=== PATIENT | female | born 1990 | race African-American/Black ===

== ENCOUNTER 2016-03-27 16:35 | Emergency (ER) | payer OTHER ==
[~2016-03-27] VITALS: Ht 170.2 cm; Wt 115.0 kg
[~2016-03-27 16:35] MED LIST: HYDR-3533 PO; MELO15TA2 PO; OMEP20TA39 PO; PREG75 PO; TRIX0.07 TOP; VALT1TAB26 PO; ZOFR4TAB3 SL
[2016-03-27 16:37] VITALS: BP 134/87; PULSE 94; RESP 20; TEMP 98; O2SAT 98
--- NOTE | 2016-03-27 17:15 | RADRPT ---
EXAM DATE/TIME: 03/27/2016 16:52 [facility] COMPARISON: No previous studies available for comparison. INDICATIONS : Chest pain MEDICAL HISTORY : None. SURGICAL HISTORY : None. ENCOUNTER: Initial ACUITY: 1 day PAIN SCORE: 10/10 LOCATION: Bilateral chest FINDINGS: A single view of the chest demonstrates the lungs to be symmetrically aerated without evidence of mas s, infiltrate or effusion. The cardiomediastinal contours are unremarkable. Osseous structures are intact. CONCLUSION: No acute disease. Rasta Sagastume MD FACR on March 27, 2016 at 17:13 Board Certified Radiologist. This report was verified electronically.
[2016-03-27 17:41] LABS: AUTOMATED NEUTROPHIL # 8.1 TH/MM3 (1.8-7.7); BASOPHIL # 0.1 TH/MM3 (0-0.2); BASOPHIL % 0.9 % (0.0-2.0); EOSINOPHIL % 0.4 % (0.0-4.0); HEMATOCRIT 35.4 % (35.0-46.0); HEMO FLAGS DIFF FINAL; LYMPH % 13.7 % (9.0-44.0); LYMPHOCYTE # 1.4 TH/MM3 (1.0-4.8); MEAN CORPUSCULAR HEMOGLOBIN 27.3 PG (27.0-34.0); MEAN CORPUSCULAR HGB CONC 32.5 % (32.0-36.0); MONO % 6.4 % (0.0-8.0); NEUT % 78.6 % (16.0-70.0); PLATELET COUNT 246 TH/MM3 (150-450); RED BLOOD COUNT 4.22 MIL/MM3 (4.00-5.30); RED CELL DISTRIBUTION WIDTH 13.8 % (11.6-17.2); WHITE BLOOD COUNT 10.3 TH/MM3 (4.0-11.0)
[2016-03-27] MEDS ORDERED: SODIUM CHLOR 0.9% 1000 ML INJ 1,000 ML IV ONE ×2 (17:48→20:15)
[2016-03-27] MEDS ORDERED: KETOROLAC TROMETHAMINE 30 MG/ML (IVP) VIAL IVP ONE (18:00)
[2016-03-27] MEDS ORDERED: diphenhydrAMINE HCL 50 MG/ML VIAL IVP ONE (18:00)
[2016-03-27] MEDS ORDERED: MORPHINE SULFATE 4 MG/ML INJ IV PUSH ONE (18:00)
[2016-03-27] MEDS ORDERED: SODIUM CHLORIDE 0.9% FLUSH 5 ML FLUSH IVF PRN (18:00)
[2016-03-27] MEDS ORDERED: PROCHLORPERAZINE INJ 10 MG/2 ML VIAL IVP ONE (18:00)
--- NOTE | 2016-03-27 18:03 | PD ---
HPI Chief Complaint: Chest Pain Time Seen by Provider: 17:38 Travel History International Travel<30 days: No Contact w/Intl Traveler<30days: No Traveled to known affect area: No History of Present Illness HPI The patient is a 25-year-old after [place] female who presents emergency department for chest pain and headache. Patient has a history of migraines, had a previous MRI which revealed a pineal cyst which is stable per the patient' s report. The headache is located over the frontal aspect, throbbing, associated with photophobia. The patient denies any nausea, vomiting, or fever. The patient also complains of substernal chest pain which she describes as intermittent, lasting approximately 1 minute, dull achy, and alleviated with deep inspiration. The patient denies any shortness of breath, diaphoresis, or known history of hypertension, hyperlipidemia, diabetes, or tobacco use. 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) ?: Not : 0 Past Surgical History Hysterectomy: No Oral Surgery: Yes (ONE WISDOM TOOTH PULLED ) Social History Alcohol Use: No Tobacco Use: No Substance Use: No Allergies-Medications (Allergen,Severity, Reaction): Coded Allergies: Clindamycin (Verified Allergy, Intermediate, Fever, Nausea, 03/27/16) Reported Meds & Prescriptions Reported Meds & Active Scripts Active No Active Prescriptions or Reported Medications Review of Systems Except as stated in HPI: all other systems reviewed are Neg Eyes: Positive: Photophobia HENT: Positive: Headaches, No: Neck Pain Cardiovascular: Positive: Chest Pain or Discomfort Respiratory: No: Shortness of Breath, Pleuritic Pain Gastrointestinal: No: Nausea, Vomiting, Abdominal Pain Musculoskeletal: No: Myalgias Neurologic: No: Dizziness Physical Exam Narrative GENERAL: Awake, alert, pleasant 25-year-old female who appears her stated age is in no acute respiratory distress. SKIN: Warm and dry. HEAD: Atraumatic. Normocephalic. EYES: Pupils equal and round. Mild lid lag on the left. Pupils equal round reactive to light. EOMs are intact. She is able to see fingers at a distance of 2 feet without difficulty. ENT: No nasal bleeding or discharge. Mucous membranes pink and moist. NECK: Trachea midline. No JVD. CARDIOVASCULAR: Regular rate and rhythm. No murmur appreciated. Palpation of the anterior chest wall does not reproduce pain. RESPIRATORY: No accessory muscle use. Clear to auscultation. Breath sounds equal bilaterally. GASTROINTESTINAL: Abdomen soft, non-tender, nondistended. No rebound tenderness. MUSCULOSKELETAL: No obvious deformities. No clubbing. No cyanosis. No edema. NEUROLOGICAL: Awake and alert. No obvious cranial nerve deficits. Motor grossly within normal limits. Normal speech. Nonfocal. PSYCHIATRIC: Appropriate mood and affect; insight and judgment normal. Data Data Last Documented VS Vital Signs Date Time Temp Pulse Resp B/P Pulse Ox O2 Delivery O2 Flow Rate FiO2 03/27/16 19:28 68 20 112/66 100 Room Air 03/27/16 16:37 98.0 Orders Electrocardiogram (03/27/16 16:43) Complete Blood Count With Diff (03/27/16 16:43) Basic Metabolic Panel (Bmp) (03/27/16 16:43) Ckmb (Isoenzyme) Profile (03/27/16 16:43) Troponin I (03/27/16 16:43) Chest, Single Ap (03/27/16 16:43) Ecg Monitoring (03/27/16 17:48) Iv Access Insert/Monitor (03/27/16 17:48) Oximetry (03/27/16 17:48) Sodium Chloride 0.9% Flush (Ns Flush) (03/27/16 18:00) Ketorolac Inj (Toradol Inj) (03/27/16 18:00) Prochlorperazine Inj (Compazine Inj) (03/27/16 18:00) Diphenhydramine Inj (Benadryl Inj) (03/27/16 18:00) Sodium Chlor 0.9% 1000 Ml Inj (Ns 1000 M (03/27/16 17:48) Morphine Inj (Morphine Inj) (03/27/16 18:00) Labs Laboratory Tests Test 03/27/16 17:20 White Blood Count 10.3 TH/MM3 Red Blood Count 4.22 MIL/MM3 Hemoglobin 11.5 GM/DL Hematocrit 35.4 % Mean Corpuscular Volume 84.0 FL Mean Corpuscular Hemoglobin 27.3 PG Mean Corpuscular Hemoglobin 32.5 % Concent Red Cell Distribution Width 13.8 % Platelet Count 246 TH/MM3 Mean Platelet Volume 9.9 FL Neutrophils (%) (Auto) 78.6 % Lymphocytes (%) (Auto) 13.7 % Monocytes (%) (Auto) 6.4 % Eosinophils (%) (Auto) 0.4 % Basophils (%) (Auto) 0.9 % Neutrophils # (Auto) 8.1 TH/MM3 Lymphocytes # (Auto) 1.4 TH/MM3 Monocytes # (Auto) 0.7 TH/MM3 Eosinophils # (Auto) 0.0 TH/MM3 Basophils # (Auto) 0.1 TH/MM3 CBC Comment DIFF FINAL Differential Comment Sodium Level 141 MEQ/L Potassium Level 3.8 MEQ/L Chloride Level 108 MEQ/L Carbon Dioxide Level 26.8 MEQ/L Anion Gap 6 MEQ/L Blood Urea Nitrogen 7 MG/DL Creatinine 0.64 MG/DL Estimat Glomerular Filtration 135 ML/MIN Rate Random Glucose 78 MG/DL Calcium Level 8.8 MG/DL Total Creatine Kinase 88 U/L Troponin I LESS THAN 0.02 NG/ML MDM Medical Decision Making Medical Screen Exam Complete: Yes Emergency Medical Condition: Yes Medical Record Reviewed: Yes Interpretation(s) EKG reveals sinus rhythm with a rate of 83. Q wave in lead 3. Last Impressions Chest X-Ray 03/27/16 1643 Signed Impressions: Service Date/Time: March 16:52 - CONCLUSION: No acute disease. Rasta Sagastume MD FACR Laboratory Tests Test 03/27/16 17:20 White Blood Count 10.3 TH/MM3 Red Blood Count 4.22 MIL/MM3 Hemoglobin 11.5 GM/DL Hematocrit 35.4 % Mean Corpuscular Volume 84.0 FL Mean Corpuscular Hemoglobin 27.3 PG Mean Corpuscular Hemoglobin 32.5 % Concent Red Cell Distribution Width 13.8 % Platelet Count 246 TH/MM3 Mean Platelet Volume 9.9 FL Neutrophils (%) (Auto) 78.6 % Lymphocytes (%) (Auto) 13.7 % Monocytes (%) (Auto) 6.4 % Eosinophils (%) (Auto) 0.4 % Basophils (%) (Auto) 0.9 % Neutrophils # (Auto) 8.1 TH/MM3 Lymphocytes # (Auto) 1.4 TH/MM3 Monocytes # (Auto) 0.7 TH/MM3 Eosinophils # (Auto) 0.0 TH/MM3 Basophils # (Auto) 0.1 TH/MM3 CBC Comment DIFF FINAL Differential Comment Sodium Level 141 MEQ/L Potassium Level 3.8 MEQ/L Chloride Level 108 MEQ/L Carbon Dioxide Level 26.8 MEQ/L Anion Gap 6 MEQ/L Blood Urea Nitrogen 7 MG/DL Creatinine 0.64 MG/DL Estimat Glomerular Filtration 135 ML/MIN Rate Random Glucose 78 MG/DL Calcium Level 8.8 MG/DL Total Creatine Kinase 88 U/L Troponin I LESS THAN 0.02 NG/ML Differential Diagnosis Differential diagnosis includes migraine, tension headache, intracranial hemorrhage, acute coronary syndrome, pericarditis, arthritis, GERD, esophageal spasm, pneumothorax, pneumonia, pulmonary embolism. Narrative Course IV was established, labs are drawn and sent, and the patient was placed on cardiac telemetry monitoring and continuous pulse oximetry monitoring. EKG was ordered and interpreted. Chest x-ray was ordered. The patient was administered morphine, Compazine, Benadryl, Toradol, and IV fluids. Chest x- rays unremarkable. Troponin is negative. EKG was unremarkable. Patient's laboratory evaluation was unremarkable, the patient was reevaluated at 8 PM, her headache had improved, however, she still had mild headache. Therefore, the patient was administered another liter of IV fluids and Fioricet. Patient be discharged and is advised to follow-up with her primary physician. Diagnosis Primary Impression: Cephalgia Qualified Code: R51 - Nonintractable headache, unspecified chronicity pattern , unspecified headache type Additional Impression: Atypical chest pain Patient Instructions: General Instructions Additional Instructions: Medications as directed. Follow-up with your primary physician. Return if symptoms worsen or progress. Med/Other Pt SpecificInfo: Prescription(s) given Scripts Puppfvsfly-Eiafcuyyjwsab-Regwxerv (Fioricet)50-300-40 Mg Cap1 Cap PO Q4H PRN ( HEADACHE) #15 CAP Ref 0 Prov:Ke Marquis MD 03/27/16 Disposition: 01 DISCHARGE HOME Condition: Stable Ke Marquis MD Mar 27, 2016 18:02
[2016-03-27 18:07] LABS: ANION GAP 6 MEQ/L (5-15); BICARBONATE 26.8 MEQ/L (21.0-32.0); BLOOD UREA NITROGEN 7 MG/DL (7-18); CHLORIDE 108 MEQ/L (98-107); GLOMERULAR FILTRATION RATE 135 ML/MIN (>89); POTASSIUM 3.8 MEQ/L (3.5-5.1); SODIUM (NA) 141 MEQ/L (136-145)
[2016-03-27 18:11] LABS: CREATINE KINASE 88 U/L (26-192)
[2016-03-27 19:28] VITALS: BP 112/66; PULSE 68; RESP 20; O2SAT 100
[2016-03-27] MEDS ORDERED: BUTA1CAP PO (20:06)
[2016-03-27] MEDS ORDERED: ACETAMIN 325 MG/BUTALBITAL 50 MG/CAFFEINE 40 MG TAB PO ONE (20:15)
[2016-03-27 21:30] VITALS: BP 101/54
--- NOTE | 2016-03-28 18:35 | EKG ---
Date Performed: 03/27/2016 Time Performed: 17:02:21 PTAGE: 25 years EKG: Sinus rhythm WITH SINUS ARRHYTHMIA NORMAL ECG PREVIOUS TRACING : 11/02/2008 07.22 Since previous tracing, no significant change noted DOCTOR: Sosa Goldsmith Interpretating Date/Time 03/28/2016 18:33:00
== END 2016-03-27 21:35 | disposition home or self-care (01) ==
LOC: NEPA 16:35
DX: R51 Headache (principal)
CPT/HCPCS: 71010; 80048; 82550; 84484; 85025; 93005; 96361; 96374; 96375; 99285; J0780; J1200; J1885; J2270; J7030

== ENCOUNTER 2016-10-09 20:20 | Emergency (ER) | payer OTHER ==
[~2016-10-09] VITALS: Ht 177.8 cm; Wt 110.0 kg
[~2016-10-09 20:20] MED LIST changes: +BUTA1CAP PO; -HYDR-3533 PO; -MELO15TA2 PO; -OMEP20TA39 PO; -PREG75 PO; -TRIX0.07 TOP; -VALT1TAB26 PO; -ZOFR4TAB3 SL
[2016-10-09 20:22] VITALS: BP 143/91; PULSE 101; RESP 16; TEMP 98.9; O2SAT 99
--- NOTE | 2016-10-09 21:08 | PD ---
Physical Exam Time Seen by Provider: 21:08 Narrative 26 y/o female here with h/a and dizziness, blurred vision. Vital signs reviewed. Seen at triage desk. Awaiting bed placement. Data Data Last Documented VS Vital Signs Date Time Temp Pulse Resp B/P Pulse Ox O2 Delivery O2 Flow Rate FiO2 10/09/16 20:22 98.9 101 16 143/[address] [facility] Medical Record Reviewed: Yes Supervised Visit with PAULINA: Baldev Huerta Oct 09, 2016 21:08
[2016-10-09] MEDS ORDERED: diphenhydrAMINE HCL 50 MG/ML VIAL IVP ONE (21:30)
[2016-10-09] MEDS ORDERED: PROCHLORPERAZINE INJ 10 MG/2 ML VIAL IVP ONE (21:30)
[2016-10-09] MEDS ORDERED: SODIUM CHLORIDE 0.9% FLUSH 10 ML FLUSH IVF PRN (21:30)
[2016-10-09] MEDS ORDERED: PROM25TA10 PO (21:32)
--- NOTE | 2016-10-09 21:33 | PD ---
HPI Chief Complaint: Headache Time Seen by Provider: 21:18 Travel History International Travel<30 days: No Contact w/Intl Traveler<30days: No Traveled to known affect area: No History of Present Illness HPI 26-year-old female complains of right retro-orbital cephalgia for 2 days. Onset gradual. No fever. No neck stiffness. She has a history of migraines. She tried biwi-mxj-jdeexqi medication which did not help. Today's headache is typical location though more severe than normal. 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) ?: Not LMP: 10/09/16 : 0 Past Surgical History Hysterectomy: No Oral Surgery: Yes (ONE WISDOM TOOTH PULLED ) Social History Alcohol Use: No Tobacco Use: No Substance Use: No Allergies-Medications (Allergen,Severity, Reaction): Coded Allergies: Clindamycin (Verified Allergy, Intermediate, Fever, Nausea, 10/09/16) Reported Meds & Prescriptions Reported Meds & Active Scripts Active Phenergan (Promethazine HCl) 25 Mg Tablet 25 Mg PO Q6H PRN Fioricet (Pkeqpyynoa-Gznmrhwzvegkp-Yayahxuz) 50-300-40 Mg Cap 1 Cap PO Q4H PRN Review of Systems Except as stated in HPI: all other systems reviewed are Neg Physical Exam Narrative GENERAL: 26-year-old female BMI 35 pleasant SKIN: Focused skin assessment warm/dry. HEAD: Atraumatic. Normocephalic. EYES: Pupils equal and round. No scleral icterus. No injection or drainage. ENT: No nasal bleeding or discharge. Mucous membranes pink and moist. NECK: Trachea midline. No JVD. Supple. CARDIOVASCULAR: Regular rate and rhythm. No murmur appreciated. RESPIRATORY: No accessory muscle use. Clear to auscultation. Breath sounds equal bilaterally. GASTROINTESTINAL: Abdomen soft, non-tender, nondistended. Hepatic and splenic margins not palpable. MUSCULOSKELETAL: No obvious deformities. No clubbing. No cyanosis. No edema. NEUROLOGICAL: Awake and alert. No obvious cranial nerve deficits. Motor grossly within normal limits. Normal speech. PSYCHIATRIC: Appropriate mood and affect; insight and judgment normal. Data Data Last Documented VS Vital Signs Date Time Temp Pulse Resp B/P Pulse Ox O2 Delivery O2 Flow Rate FiO2 10/09/16 21:11 18 10/09/16 20:22 98.9 101 143/91 99 Room Air Vital signs reviewed Orders Ecg Monitoring (10/09/16 21:18) Iv Access Insert/Monitor (10/09/16 21:18) Oximetry (10/09/16 21:18) Sodium Chloride 0.9% Flush (Ns Flush) (10/09/16 21:30) Prochlorperazine Inj (Compazine Inj) (10/09/16 21:30) Diphenhydramine Inj (Benadryl Inj) (10/09/16 21:30) MDM Medical Decision Making Medical Screen Exam Complete: Yes Emergency Medical Condition: Yes Medical Record Reviewed: Yes Differential Diagnosis migraine, tension headache, cluster headache, meningitis, epidural empyema Narrative Course GUTIERRES improved with compazine/benadryl/ivf. Return precautions discussed. Pt ready for discharge. Diagnosis Primary Impression: Migraine Qualified Code: G43.909 - Migraine without status migrainosus, not intractable , unspecified migraine type Referrals: Primary Care Physician 2 days Additional Instructions: You have a choice when it comes to health care, and we are glad that you chose [facility]. Hopefully, we have met your expectations on today's visit. You are welcome to return to [facility] at any time, as we are committed to meeting the health care needs of our community. Med/Other Pt SpecificInfo: Prescription(s) given Scripts Promethazine (Phenergan)25 Mg Qbolek22 Mg PO Q6H PRN (HEADACHE) #15 TAB Ref 0 Prov:Enrique Torre MD 10/09/16 Disposition: 01 DISCHARGE HOME Condition: Stable Enrique Torre MD Oct 09, 2016 21:32
== END 2016-10-09 22:53 | disposition home or self-care (01) ==
LOC: NEPD 20:20
DX: G43.909 Migraine, unspecified, not intractable, without status migrainosus (principal); R56.9 Unspecified convulsions; Z79.899 Other long term (current) drug therapy; Z88.1 Allergy status to other antibiotic agents
CPT/HCPCS: 96374; 96375; 99284; J0780; J1200

== ENCOUNTER 2017-05-19 13:19 | Emergency (ER) | payer SELFPAY ==
[~2017-05-19 13:19] MED LIST changes: +PROM25TA10 PO
[2017-05-19 13:28] VITALS: BP 133/79; PULSE 104; RESP 22; TEMP 98.7; O2SAT 96
--- NOTE | 2017-05-19 14:11 | RADRPT ---
EXAM DATE/TIME: 05/19/2017 13:54 [facility] COMPARISON: CT BRAIN W/O CONTRAST, December 07, 2014, 23:27. INDICATIONS : Headache, seizures. RADIATION DOSE: 56.35 CTDIvol (mGy) MEDICAL HISTORY : Seizures. SURGICAL HISTORY : None. ENCOUNTER: Initial ACUITY: 4 - 6 days PAIN SCALE: 10/10 LOCATION: cranial TECHNIQUE: Multiple contiguous axial images were obtained of the head. Using automated exposure control and adj ustment of the mA and/or kV according to patient size, radiation dose was kept as low as reasonably a chievable to obtain optimal diagnostic quality images. DICOM format image data is available electro nically for review and comparison. FINDINGS: CEREBRUM: A 1 cm rim calcified pineal cyst is stable. The ventricles are normal for age. No evidence of midlin e shift, mass lesion, hemorrhage or acute infarction. No extra-axial fluid collections are seen. POSTERIOR FOSSA: The cerebellum and brainstem are intact. The 4th ventricle is midline. The cerebellopontine angle i s unremarkable. EXTRACRANIAL: The visualized portion of the orbits is intact. SKULL: The calvaria is intact. No evidence of skull fracture. CONCLUSION: No acute disease. Jose Osborne Jr., MD on May 19, 2017 at 14:07 Board Certified Radiologist. This report was verified electronically.
--- NOTE | 2017-05-19 15:04 | PD ---
HPI Chief Complaint: Headache Time Seen by Provider: 15:03 Travel History International Travel<30 days: No Contact w/Intl Traveler<30days: No Traveled to known affect area: No History of Present Illness HPI 26-year-old female came to the emergency room with history of right-sided headache that has been going on for the past 5 days. Patient does have history of headaches and says this one is worse than any of them. It has not gone away. Patient has been taking zjwh-ldf-wqgegdr medication. She has history of petite mall seizure and pineal cyst and needs to see a neurologist for that but has not seen a neurologist in the past 1 year. She is awake and answering questions appropriately. No history of nausea or vomiting. Some degree of photophobia. No history of fever or chills. Vital signs were relatively stable in triage. [facility] Past Medical History Narrative Medical List of her past medical, surgical, social and family history reviewed from the nursing note. 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 Reported Meds & Prescriptions Reported Meds & Active Scripts Active Narrative Medication List of her home medications reviewed from the nursing note. Review of Systems Except as stated in HPI: all other systems reviewed are Neg Neurologic: Positive: Headache Physical Exam Narrative GENERAL: Awake, alert, morbidly obese, moderate distress SKIN: Focused skin assessment warm/dry. HEAD: Atraumatic. Normocephalic. EYES: Pupils equal and round. No scleral icterus. No injection or drainage. ENT: No nasal bleeding or discharge. Mucous membranes pink and moist. NECK: Trachea midline. No JVD. CARDIOVASCULAR: Regular rate and rhythm. No murmur appreciated. RESPIRATORY: No accessory muscle use. Clear to auscultation. Breath sounds equal bilaterally. GASTROINTESTINAL: Abdomen soft, non-tender, nondistended. Hepatic and splenic margins not palpable. MUSCULOSKELETAL: No obvious deformities. No clubbing. No cyanosis. No edema. NEUROLOGICAL: Awake and alert. No obvious cranial nerve deficits. Motor grossly within normal limits. Normal speech. PSYCHIATRIC: Appropriate mood and affect; insight and judgment normal. Data Data Last Documented VS Orders Orders Complete Blood Count With Diff (05/19/17 13:31) Comprehensive Metabolic Panel (05/19/17 13:31) Magnesium (Mg) (05/19/17 13:31) Ct Brain W/O Iv Contrast(Rout) (05/19/17 ) Prochlorperazine Inj (Compazine Inj) (05/19/17 15:15) Sodium Chlor 0.9% 1000 Ml Inj (Ns 1000 M (05/19/17 15:15) Ketorolac Inj (Toradol Inj) (05/19/17 15:15) Knkc-Oydar-Gitk 325-50-40 Mg (Fioricet 3 (05/19/17 19:00) Metoclopramide Inj (Reglan Inj) (05/19/17 19:00) Ed Discharge Order (05/19/17 20:02) Labs Laboratory Tests Test 05/19/17 16:00 05/19/17 17:58 White Blood Count 8.3 TH/MM3 Red Blood Count 4.25 MIL/MM3 Hemoglobin 11.6 GM/DL Hematocrit 35.4 % Mean Corpuscular Volume 83.4 FL Mean Corpuscular Hemoglobin 27.3 PG Mean Corpuscular Hemoglobin Concent 32.7 % Red Cell Distribution Width 14.6 % Platelet Count 285 TH/MM3 Mean Platelet Volume 10.4 FL Neutrophils (%) (Auto) 68.0 % Lymphocytes (%) (Auto) 20.9 % Monocytes (%) (Auto) 9.2 % Eosinophils (%) (Auto) 1.1 % Basophils (%) (Auto) 0.8 % Neutrophils # (Auto) 5.6 TH/MM3 Lymphocytes # (Auto) 1.7 TH/MM3 Monocytes # (Auto) 0.8 TH/MM3 Eosinophils # (Auto) 0.1 TH/MM3 Basophils # (Auto) 0.1 TH/MM3 CBC Comment DIFF FINAL Differential Comment Blood Urea Nitrogen 6 MG/DL Creatinine 0.62 MG/DL Random Glucose 77 MG/DL Total Protein 7.0 GM/DL Albumin 3.1 GM/DL Calcium Level 7.8 MG/DL Magnesium Level 1.7 MG/DL Alkaline Phosphatase 81 U/L Aspartate Amino Transf (AST/SGOT) 16 U/L Alanine Aminotransferase (ALT/SGPT) 19 U/L Total Bilirubin 0.2 MG/DL Sodium Level 142 MEQ/L Potassium Level 4.3 MEQ/L Chloride Level 111 MEQ/L Carbon Dioxide Level 22.4 MEQ/L Anion Gap 9 MEQ/L Estimat Glomerular Filtration Rate 139 ML/MIN MDM Medical Decision Making Medical Screen Exam Complete: Yes Emergency Medical Condition: Yes Medical Record Reviewed: Yes Differential Diagnosis Headache NOS, status migrainous Narrative Course 4:02 PM awaiting for the blood test. CT scan was done which is negative and shows a stable calcified pineal cyst. Patient is getting IV fluid bolus and headache medications. Procedures EKG Prior to Arrival: No Diagnosis Primary Impression: Headache Qualified Codes: R51 - Headache Disposition: 01 DISCHARGE HOME Condition: Stable Sonya Briones MD May 19, 2017 15:04
[2017-05-19] MEDS ORDERED: PROCHLORPERAZINE INJ 10 MG/2 ML VIAL IV PUSH ONE (15:15)
[2017-05-19] MEDS ORDERED: SODIUM CHLOR 0.9% 1000 ML INJ 1,000 ML IV ONE (15:15)
[2017-05-19] MEDS ORDERED: KETOROLAC TROMETHAMINE 30 MG/ML (IVP) VIAL IV PUSH ONE (15:15)
[2017-05-19 16:52] LABS: AUTOMATED NEUTROPHIL # 5.6 TH/MM3 (1.8-7.7); BASOPHIL # 0.1 TH/MM3 (0-0.2); BASOPHIL % 0.8 % (0.0-2.0); EOSINOPHIL # 0.1 TH/MM3 (0-0.4); EOSINOPHIL % 1.1 % (0.0-4.0); HEMATOCRIT 35.4 % (35.0-46.0); HEMOGLOBIN 11.6 GM/DL (11.6-15.3); LYMPH % 20.9 % (9.0-44.0); LYMPHOCYTE # 1.7 TH/MM3 (1.0-4.8); MEAN CELL VOLUME 83.4 FL (80.0-100.0); MEAN CORPUSCULAR HEMOGLOBIN 27.3 PG (27.0-34.0); MEAN CORPUSCULAR HGB CONC 32.7 % (32.0-36.0); MEAN PLATELET VOLUME 10.4 FL (7.0-11.0); MONO % 9.2 % (0.0-8.0); MONOCYTE # 0.8 TH/MM3 (0-0.9); PLATELET COUNT 285 TH/MM3 (150-450); RED BLOOD COUNT 4.25 MIL/MM3 (4.00-5.30); RED CELL DISTRIBUTION WIDTH 14.6 % (11.6-17.2); WHITE BLOOD COUNT 8.3 TH/MM3 (4.0-11.0)
[2017-05-19 18:41] LABS: ALBUMIN 3.1 GM/DL (3.4-5.0); AST (GOT) 16 U/L (15-37); BICARBONATE 22.4 MEQ/L (21.0-32.0); CALCIUM 7.8 MG/DL (8.5-10.1); CHLORIDE 111 MEQ/L (98-107); CREATININE 0.62 MG/DL (0.50-1.00); GLOMERULAR FILTRATION RATE 139 ML/MIN (>89); GLUCOSE,RANDOM 77 MG/DL (74-106); MAGNESIUM 1.7 MG/DL (1.5-2.5); SODIUM (NA) 142 MEQ/L (136-145)
[2017-05-19 18:42] LABS: ALT (GPT) 19 U/L (10-53); BLOOD UREA NITROGEN 6 MG/DL (7-18)
[2017-05-19 18:45] LABS: ALKALINE PHOSPHATASE 81 U/L (45-117); TOTAL BILIRUBIN ADULT 0.2 MG/DL (0.2-1.0)
[2017-05-19] MEDS ORDERED: ACETAMIN 325 MG/BUTALBITAL 50 MG/CAFFEINE 40 MG TAB PO ONE (19:00)
[2017-05-19] MEDS ORDERED: METOCLOPRAMIDE HCL 10 MG/2 ML VIAL IV PUSH ONE (19:00)
--- NOTE | 2017-05-19 20:02 | PD ---
Data Data Last Documented VS Vital Signs Date Time Temp Pulse Resp B/P (MAP) Pulse Ox O2 Delivery O2 Flow Rate FiO2 05/19/17 13:28 98.7 104 22 133/79 (97) 96 Orders Orders Complete Blood Count With Diff (05/19/17 13:31) Comprehensive Metabolic Panel (05/19/17 13:31) Magnesium (Mg) (05/19/17 13:31) Ct Brain W/O Iv Contrast(Rout) (05/19/17 ) Prochlorperazine Inj (Compazine Inj) (05/19/17 15:15) Sodium Chlor 0.9% 1000 Ml Inj (Ns 1000 M (05/19/17 15:15) Ketorolac Inj (Toradol Inj) (05/19/17 15:15) Bmpq-Bmrib-Jhsj 325-50-40 Mg (Fioricet 3 (05/19/17 19:00) Metoclopramide Inj (Reglan Inj) (05/19/17 19:00) Labs Laboratory Tests Test 05/19/17 16:00 05/19/17 17:58 White Blood Count 8.3 TH/MM3 Red Blood Count 4.25 MIL/MM3 Hemoglobin 11.6 GM/DL Hematocrit 35.4 % Mean Corpuscular Volume 83.4 FL Mean Corpuscular Hemoglobin 27.3 PG Mean Corpuscular Hemoglobin Concent 32.7 % Red Cell Distribution Width 14.6 % Platelet Count 285 TH/MM3 Mean Platelet Volume 10.4 FL Neutrophils (%) (Auto) 68.0 % Lymphocytes (%) (Auto) 20.9 % Monocytes (%) (Auto) 9.2 % Eosinophils (%) (Auto) 1.1 % Basophils (%) (Auto) 0.8 % Neutrophils # (Auto) 5.6 TH/MM3 Lymphocytes # (Auto) 1.7 TH/MM3 Monocytes # (Auto) 0.8 TH/MM3 Eosinophils # (Auto) 0.1 TH/MM3 Basophils # (Auto) 0.1 TH/MM3 CBC Comment DIFF FINAL Differential Comment Blood Urea Nitrogen 6 MG/DL Creatinine 0.62 MG/DL Random Glucose 77 MG/DL Total Protein 7.0 GM/DL Albumin 3.1 GM/DL Calcium Level 7.8 MG/DL Magnesium Level 1.7 MG/DL Alkaline Phosphatase 81 U/L Aspartate Amino Transf (AST/SGOT) 16 U/L Alanine Aminotransferase (ALT/SGPT) 19 U/L Total Bilirubin 0.2 MG/DL Sodium Level 142 MEQ/L Potassium Level 4.3 MEQ/L Chloride Level 111 MEQ/L Carbon Dioxide Level 22.4 MEQ/L Anion Gap 9 MEQ/L Estimat Glomerular Filtration Rate 139 ML/MIN [facility] Supervised Visit with PAULINA: No Narrative Course The patient was initially evaluated by the previous provider and signed out to me at the beginning of my shift pending labs, CT head, and disposition. See her note for further details. Briefly this is a 26-year-old female with history of migraine headaches here complaining of a left frontal headache 2 days. Patient has been taking ibuprofen without relief of symptoms. She denies fevers or chills. Headache feels similar to previous migraines, however is rated as severe. Gradual onset. CT head shows a pineal cyst that is unchanged. Labs are unremarkable. The patient was given Toradol and Compazine by the previous provider as well as a liter of normal saline IV and on my assessment she continues to have headache. I gave her a dose of Reglan and Fioricet, and the patient again continues to complain of headache. She states that she would like to go home however and is declining any further workup including an LP. She is overall well-appearing and I will discharge her home with strict return instructions. PMD follow-up this week. She verbalizes understanding and agreement with plan. Diagnosis Primary Impression: Headache Qualified Codes: R51 - Headache Referrals: Primary Care Physician 3 days Additional Instruction: Follow-up with a primary care physician this week. Return to the emergency department for worsening symptoms or any other concerns. Disposition: 01 DISCHARGE HOME Condition: Stable Eric Moyer MD May 19, 2017 20:02
== END 2017-05-19 20:39 | disposition home or self-care (01) ==
LOC: NEPD 13:19
DX: R51 Headache (principal)
CPT/HCPCS: 70450; 80053; 83735; 85025; 96361; 96374; 96375; 99284; J1885; J2765; J7030; J0780